=== PATIENT | male | born 2000 | race Caucasian/White ===

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

== ENCOUNTER 2022-11-15 11:34 | Observation (INO) ==
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
[~2022-11-15 11:34] MED LIST changes: +ATROPINE SULFATE 0.1 MG/ML 10ML SYR IV PRN; +CLINDA 900 MG **Premixed Bag IV SCH; +LABETALOL HCL IV 5 MG/ML 20ML IV ONE; +LR 15ML/HR IV SCH; +ONDANSETRON INJ 2 MG/ML 2 ML VIAL IV PRN; -OXYC1TAB3 PO; +ePHEDrine sulfate 50 MG/ML AMP IV PRN; +fentaNYL citrate PF 100 MCG/2 ML VIAL IV PRN
[2022-11-15] MEDS ORDERED: PROPOFOL IV EMULSION 10 MG/ML 20 ML VIAL IV ONE ×4 (13:27→16:32)
--- NOTE | 2022-11-15 15:10 | History & Physical Bridge Note ---
Date of Service November 15, 2022 History & Physical Bridge Note I have examined the patient, reviewed the History & Physical and in the interval since the performance of the History & Physical I have noted the following changes of clinical significance: no changes noted Swelling has decreased very well Still paraesthesia chin and face from the bilateral fracture OK for planned surgery
[2022-11-15] MEDS ORDERED: MIDAZOLAM HCL 1 MG/ML 2ML VIAL ONE (15:11)
[2022-11-15] MEDS ORDERED: LIDOCAINE 2% MPF LOCAL 5 ML VIAL ONE (15:11)
[2022-11-15] MEDS ORDERED: DEXAMETHASONE SOD INJ 4 MG/ML VIAL ONE ×2 (15:11→18:10)
[2022-11-15] MEDS ORDERED: ONDANSETRON INJ 2 MG/ML 2 ML VIAL ONE (15:11)
[2022-11-15] MEDS ORDERED: ROCURONIUM BROMIDE 10 MG/ML 5 ML VIAL IV ONE (15:11)
[2022-11-15] MEDS ORDERED: fentaNYL citrate PF 100 MCG/2 ML VIAL ONE (15:11)
[2022-11-15] MEDS ORDERED: OXYMETAZOLINE 0.05% 30 ML BTL ONE (15:37)
[2022-11-15] MEDS ORDERED: CHLORHEXIDINE GLUCONATE 0.12% 480 ML MT ONE (16:40)
[2022-11-15] MEDS ORDERED: HYDROmorphone INJ 2 MG/ML SYR/VIAL ONE (16:42)
[2022-11-15] MEDS ORDERED: HYDROmorphone INJ 1 MG/ML SYRINGE IV PRN (17:27)
[2022-11-15] MEDS ORDERED: PROMETHAZINE HCL 6.25 MG in SODIUM CHLORIDE 0.9% 50 ML IV PRN (17:27)
[2022-11-15] MEDS ORDERED: SUGAMMADEX SODIUM 200 MG/2 ML VIAL IV ONE (18:36)
[2022-11-15] MEDS ORDERED: BUPIVACAINE/EPINEPHRINE 0.5% 1:200,000 1.8 ML CARP INFIL ONE (18:43)
[2022-11-15] MEDS ORDERED: ACETAMINOPHEN/HYDROcodone ELIX 15 ML/CUP PO PRN (19:12)
[2022-11-15] MEDS ORDERED: LORazepam 2 MG/1 ML VIAL IV PRN (19:12)
[2022-11-15] MEDS ORDERED: ACETAMINOPHEN SUSP 325 MG/10.15 ML UDC PO PRN (19:12)
--- NOTE | 2022-11-15 19:20 | Post Operative Brief Note ---
PG Immediate Post Op with CF Date of Surgery November 15, 2022 Pre & Post Diagnosis Operation Date: 11/15/22 13:50 Pre-Op Diagnosis: Bilateral Mandibular Fracture Post-Op Diagnosis: Bilateral Mandibular Fracture I identified the patient and participated in the time-out.: Yes Procedure Operation Date: 11/15/22 13:50 Actual Procedures p Open Reduction of Mandibular Fracture Bilateral, Removal of [place] Tooth #17 in Line of Fracture - Juvenal Handy DMD Surgeon Juvenal Handy, BRAN Instrument Room Technician none Estimated Blood Loss 10 Findings Consistent with Post-Op Diagnosis grossly displaced bilateral monika fracture Anesthesia Type General Complications none Difficult intubation, limited opening, swelling, small mouth
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
[2022-11-15] MEDS ORDERED: ONDANSETRON INJ 2 MG/ML 2 ML VIAL IV PRN (20:40)
[2022-11-15] MEDS ORDERED: TRIAMCINOLONE ACET 0.1% OINT 15 GM TUBE EXT SCH (21:00)
--- NOTE | 2022-11-15 21:14 | Anesthesiology Progress Note ---
Date of Service November 15, 2022 Anesthesia Post Procedure Vital Signs Vital Signs: Temp Pulse Pulse Resp BP BP Pulse Ox 11/15/22 20:28 36.7 C 100 H 16 152/119 H 96 11/15/22 19:55 36.5 C 98 H 19 151/102 H 95 11/15/22 19:45 99 H 17 147/101 H 97 11/15/22 19:35 104 H 14 159/107 H 98 11/15/22 19:27 36.0 C L 112 H 14 146/100 H 95 11/15/22 13:01 37.4 C 83 18 131/80 98 O2 Del Method O2 Flow Rate 11/15/22 20:28 Room Air 11/15/22 19:55 Room Air 11/15/22 19:45 Oxymask 5 11/15/22 19:35 Oxymask 7 11/15/22 19:27 Oxymask 7 11/15/22 13:01 Room Air Pain Intensity Bilateral Jaw: Pain Intensity: 7 Transfer of Care Handoff Completed per policy Notes Mental Status: alert / awake / arousable and participated in evaluation Patient Amnestic to Procedure: Yes Nausea / Vomiting: adequately controlled Pain: adequately controlled Airway Patency, RR, SpO2: stable & adequate BP & HR: stable & adequate Hydration State: stable & adequate Anesthetic Complications: no major complications apparent and Pt Satisfied with anesthetic care Notes: pt to be monitored in icu overnight given that he is wired shut from surgery
[2022-11-15] MEDS: MoRPHine SULFATE 2 MG/ML CARP IV PRN ×2 (21:46→23:15)
[2022-11-15] MEDS: dexAMETHasone 6 MG in SYRINGE 0 ML IV SCH (21:47)
[2022-11-15] MEDS: CLINDAMYCIN/D5W 900 MG/50 ML BAG IV SCH (21:47)
[2022-11-15] MEDS: KETOROLAC 30 MG/ML VIAL IV SCH (21:48)
[2022-11-15] MEDS: FAMOTIDINE 20 MG in SYRINGE 3 ML IV SCH (21:48)
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
[2022-11-15] MEDS: ICU Protocol for HYPERglycemia SCH (22:36)
[2022-11-16] MEDS: ACETAMINOPHEN/HYDROcodone ELIX 15 ML/CUP PO PRN ×3 (00:53→07:46)
[2022-11-16] MEDS: KETOROLAC 30 MG/ML VIAL IV SCH ×2 (01:02→07:45)
[2022-11-16] MEDS: dexAMETHasone 6 MG in SYRINGE 0 ML IV SCH ×2 (02:00→09:09)
[2022-11-16] MEDS: CLINDAMYCIN/D5W 900 MG/50 ML BAG IV SCH (04:25)
--- NOTE | 2022-11-16 07:11 | XRay Report ---
XR mandible <4V CLINICAL HISTORY: Status Post-Op Surgery AP Mandibular and Jaw View COMPARISON STUDY: CT facial bones 11/11/2022. FINDINGS: Status post internal fixation of the mandibular fractures with cortical plates and screws. The hardware appears intact. Alignment appears near-anatomic. Orthodontic hardware is in place. IMPRESSION: Status post internal fixation of the mandibular fractures. The hardware appears intact. ACT 112: Negative or not required by law. Electronically signed by: Cruz Manuel M.D. 11/16/2022 7:10 AM
--- NOTE | 2022-11-16 08:11 | Surgery Progress Note ---
Date of Service November 16, 2022 Assessment & Plan Admission and Anticipated Discharge Date Admission Date: November 15, 2022 Kevin Rose was admitted last night to ICU after a long difficult surgical proced ure. The anesthesia dept had a very difficult intubation and we were concerned for airway swelling . Given the late time the procedure was completed ICU observation was necessary. This AM he is doing very well Fixation looks great occlusion is stable. I reviewed care, diet, follow up and stressed carrying the wire cutters at ALL TIMES. Rx called into the drug store Post op with Dr Ole Murphy 13 at 3 pm. Overall EXCELLENT result and greatly improved over the last 12 hrs OK for discharge Results & Data Vital Signs (Past 12 Hours) Vital Signs Temp Pulse Pulse Resp BP BP Pulse Ox 11/16/22 06:18 68 17 93 11/16/22 06:18 124/79 11/16/22 05:18 111/72 11/16/22 05:18 60 14 97 11/16/22 00:00 92 H 11/16/22 04:18 66 5 L 93 11/16/22 04:18 115/81 11/16/22 03:18 63 7 L 98 11/16/22 03:18 123/72 11/16/22 02:18 73 12 100 11/16/22 02:18 143/84 H 11/16/22 02:06 87 10 L 97 11/16/22 02:06 138/103 H 11/16/22 01:18 94 H 10 L 97 11/16/22 01:18 134/82 11/16/22 00:18 93 H 7 L 97 11/16/22 00:18 138/118 H 11/15/22 23:18 90 8 L 96 11/15/22 23:18 138/85 11/15/22 21:18 36.8 C 103 H 13 156/94 H 94 11/15/22 20:28 36.7 C 100 H 16 152/119 H 96 O2 Del Method 11/16/22 06:18 11/16/22 06:18 11/16/22 05:18 11/16/22 05:18 11/16/22 00:00 11/16/22 04:18 11/16/22 04:18 11/16/22 03:18 11/16/22 03:18 11/16/22 02:18 11/16/22 02:18 11/16/22 02:06 11/16/22 02:06 11/16/22 01:18 11/16/22 01:18 11/16/22 00:18 11/16/22 00:18 11/15/22 23:18 11/15/22 23:18 11/15/22 21:18 11/15/22 20:28 Room Air PG Care Time/CCT Total # of Minutes Spent Total Time Spent with Patient: Total time spent is greater than 50% in coordination of care (as documented) at patient's floor/unit and/or counseling patient: Coding Level of Care Code None Diagnoses
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
[2022-11-16] MEDS: ICU Protocol for HYPERglycemia SCH (09:09)
[2022-11-16] MEDS: FAMOTIDINE 20 MG in SYRINGE 3 ML IV SCH (09:09)
== END 2022-11-16 09:13 | disposition home or self-care (01) ==
LOC: ASU 11:34 → INTOOBSV 19:07 → 1E 19:07